=== PATIENT | male | born 1980 | race Caucasian/White ===

== ENCOUNTER 2016-10-25 18:31 | Emergency (ER) | payer SELFPAY ==
[~2016-10-25] VITALS: Ht 172.7 cm; Wt 77.0 kg
[~2016-10-25 18:31] MED LIST: VENTAER INH
[2016-10-25 18:32] VITALS: BP 129/77; PULSE 98; RESP 17; TEMP 98.2; O2SAT 98
--- NOTE | 2016-10-25 18:46 | PD ---
Physical Exam Time Seen by Provider: 18:43 Narrative 36yo M c/o chest and nasal congestion [id number]. Reports SOB. Denies chest pain. Hx of asthma and using inhaler w/ minimal improvement. Reports wheezing, but not now. Denies fever, vomiting. Patient stable. Patient seen in triage. Awaiting bed placement. Data Data Last Documented VS Vital Signs Date Time Temp Pulse Resp B/P Pulse Ox O2 Delivery O2 Flow Rate FiO2 10/25/16 18:32 98.2 98 17 129/77 98 MDM Supervised Visit with ARJUN: Iliana Sagastume Oct 25, 2016 18:46
--- NOTE | 2016-10-25 18:48 | PD ---
HPI . sinus pressure/congestion for few weeks Chief Complaint: Cold / Flu Symptoms Time Seen by Provider: 18:47 Travel History International Travel<30 days: No Contact w/Intl Traveler<30days: No Traveled to known affect area: No History of Present Illness HPI 36-year-old male here with complaints of sinus pressure and chest congestion for the past several weeks. Patient says that he's had sinus pressure and chest congestion for the past 3 weeks. He does have a history of asthma and has been using his inhaler without any relief. He denies any fever or chills. He has no other complaints. PFSH Past Medical History Asthma: Yes Blood Disorders: No Anxiety: Yes Depression: Yes Cancer: No Cardiovascular Problems: No Diminished Hearing: No Endocrine: No Gastrointestinal Disorders: No Genitourinary: No Immune Disorder: No Implanted Vascular Access Dvce: No Musculoskeletal: Yes (CHRONIC BACK PAIN) Neurologic: No Psychiatric: Yes Reproductive: No Respiratory: Yes (ASTHMA) Immunizations Current: No PNEUMOCCOCAL Vaccine (Year): 2 Social History Alcohol Use: Yes (soc) Tobacco Use: Yes (VAP) Substance Use: Yes (BENZOIDS, OPIATES per the medical record) Allergies-Medications (Allergen,Severity, Reaction): Coded Allergies: Penicillin (Verified Allergy, Severe, hives, 10/25/16) Bactrim (Verified Allergy, Intermediate, RASH, 10/25/16) Doxycycline (Verified Allergy, Intermediate, RASH, 10/25/16) Reported Meds & Prescriptions Reported Meds & Active Scripts Active Prednisone 50 Mg Tab 50 Mg PO DAILY Zithromax Z-Pepe (Azithromycin) 250 Mg Dspk 250 Mg PO DIRECTED 500 MG (2 tabs) day 1, then 1 tab days 2-5. Reported Ventolin Hfa 18 GM Inh (Albuterol Sulfate) 90 Mcg/Act Aer 2 Puff INH Q4-6H PRN Review of Systems General / Constitutional: No: Fever Eyes: No: Visual changes HENT: Positive: Congestion, No: Headaches Cardiovascular: No: Chest Pain or Discomfort Respiratory: Positive: Cough, No: Shortness of Breath Gastrointestinal: No: Abdominal Pain Genitourinary: No: Dysuria Musculoskeletal: No: Pain Skin: No Rash Neurologic: No: Weakness Psychiatric: No: Depression Endocrine: No: Polydipsia Hematologic/Lymphatic: No: Easy Bruising Physical Exam Narrative GENERAL: AAO x 3, no acute distress, Well-nourished, well-developed patient. SKIN: Warm and dry. No visible rashes or bruising. HEAD: Normocephalic and atraumatic. EYES: No scleral icterus. No injection or drainage. ENT: No nasal drainage noted. Mucous membranes pink. Airway patent. Maxillary sinus tenderness, TMs with air bubbles. No posterior pharynx erythema, edema or exudate. NECK: Supple, trachea midline. No JVD. No lymphadenopathy. CARDIOVASCULAR: Regular rate and rhythm without murmurs, gallops, or rubs. RESPIRATORY: Breath sounds equal bilaterally. No accessory muscle use. No rhonchi or rales. No audible wheezing. Dry cough heard throughout examination GASTROINTESTINAL: Normal visual inspection EXTREMITIES: No cyanosis or edema. BACK: Nontender without obvious deformity. No CVA tenderness. PSYCH: AAO x 3, normal affect. Data Data Last Documented VS Vital Signs Date Time Temp Pulse Resp B/P Pulse Ox O2 Delivery O2 Flow Rate FiO2 10/25/16 18:32 98.2 98 17 129/77 98 MDM Medical Decision Making Medical Screen Exam Complete: Yes Emergency Medical Condition: Yes Medical Record Reviewed: Yes Differential Diagnosis sinusitis, bronchitis, less likely PNA Narrative Course 36-year-old male here with complaints of sinus pressure and chest congestion for the past several weeks. Patient says that he's had sinus pressure and chest congestion for the past 3 weeks. He does have a history of asthma and has been using his inhaler without any relief. He denies any fever or chills. He has no other complaints. Patient seen and examined. He appears to have a sinusitis and bronchitis. My index of suspicion for pneumonia is low. I recommend a Z-Pepe and prednisone burst. I've advised him that the cough can linger for 6-8 weeks. He can continue to use his inhaler when necessary. Follow-up with primary care provider. Patient verbalized understanding of instructions, questions were answered, and thanked me for their care. I advised them if their condition worsens, please return to the nearest emergency room for further care. Diagnosis Primary Impression: Acute sinusitis Qualified Code: J01.00 - Acute maxillary sinusitis, recurrence not specified Additional Impression: Acute bronchitis Qualified Code: J20.9 - Acute bronchitis, unspecified organism Patient Instructions: General Instructions Additional Instructions: As we discussed the cough can last 6-8 weeks. Take medications as prescribed. If you are a smoker, try to quit. Follow up with your primary care provider. If you develop sudden onset or worsening of shortness or breath, please go to the nearest emergency room. Please return to emergency department if your symptoms return or worsen. Follow up with your primary care provider. Take medications as prescribed. Med/Other Pt SpecificInfo: Prescription(s) given Scripts Prednisone 50 Mg Tab50 Mg PO DAILY #5 TAB Prov:Marita Saha DO 10/25/16 Azithromycin (Zithromax Z-Pepe)250 Mg [id number] Mg PO DIRECTED #1 DSPK Ref 0 500 MG (2 tabs) day 1, then 1 tab days 2-5. Prov:Marita Saha DO 10/25/16 Disposition: 01 DISCHARGE HOME Condition: Stable Kate Arambula Oct 25, 2016 18:48
[2016-10-25] MEDS ORDERED: ZITHTAB PO (18:49)
[2016-10-25] MEDS ORDERED: PRED50 PO (18:53)
== END 2016-10-25 19:39 | disposition home or self-care (01) ==
LOC: NEPK 18:31
DX: J01.90 Acute sinusitis, unspecified (principal); J20.9 Acute bronchitis, unspecified; J45.909 Unspecified asthma, uncomplicated; G89.29 Other chronic pain; M54.9 Dorsalgia, unspecified; Z72.0 Tobacco use
CPT/HCPCS: 99283

== ENCOUNTER 2016-11-07 22:36 | Emergency (ER) | payer SELFPAY ==
[~2016-11-07] VITALS: Ht 172.7 cm; Wt 77.3 kg
[~2016-11-07 22:36] MED LIST changes: +PRED50 PO; +ZITHTAB PO
[2016-11-07] MEDS ORDERED: SODIUM CHLOR 0.9% 1000 ML INJ 1,000 ML IV ONE (22:45)
--- NOTE | 2016-11-07 22:45 | PD ---
HPI Chief Complaint: overdose Time Seen by Provider: 22:40 Travel History International Travel<30 days: No Contact w/Intl Traveler<30days: No Traveled to known affect area: No History of Present Illness HPI 36-year-old male brought in by ambulance as a possible heroin overdose. The patient was found unresponsive in a car at a gas station. He was breathing between 8-12 breaths per minute and was unresponsive. EMS started to use BVM to assist his breathing and administered a total of 2.4 mg of Narcan. Patient' s GCS went from a 3-15. He admits to injecting heroin. Denies any other drugs. Denies any physical complaints other than feeling cold. He is denying suicidal or homicidal ideation. PFSH Past Medical History Asthma: Yes Blood Disorders: No Anxiety: Yes Depression: Yes Cancer: No Cardiovascular Problems: No Diminished Hearing: No Endocrine: No Gastrointestinal Disorders: No Genitourinary: No Immune Disorder: No Implanted Vascular Access Dvce: No Musculoskeletal: Yes (CHRONIC BACK PAIN) Neurologic: No Psychiatric: Yes Reproductive: No Respiratory: Yes (ASTHMA) Immunizations Current: No PNEUMOCCOCAL Vaccine (Year): 2 Social History Alcohol Use: Yes (soc) Tobacco Use: Yes (VAP) Substance Use: Yes (BENZOIDS, OPIATES per the medical record) Allergies-Medications (Allergen,Severity, Reaction): Coded Allergies: Penicillin (Verified Allergy, Severe, hives, 10/25/16) Bactrim (Verified Allergy, Intermediate, RASH, 10/25/16) Doxycycline (Verified Allergy, Intermediate, RASH, 10/25/16) Reported Meds & Prescriptions Reported Meds & Active Scripts Active Prednisone 50 Mg Tab 50 Mg PO DAILY Zithromax Z-Pepe (Azithromycin) 250 Mg Dspk 250 Mg PO DIRECTED 500 MG (2 tabs) day 1, then 1 tab days 2-5. Reported Ventolin Hfa 18 GM Inh (Albuterol Sulfate) 90 Mcg/Act Aer 2 Puff INH Q4-6H PRN Review of Systems Except as stated in HPI: all other systems reviewed are Neg Physical Exam Narrative GENERAL: Well-developed, well-nourished, awake, alert, no apparent distress. SKIN: Focused skin assessment warm/dry. Tattoos throughout body. Piloerection. HEAD: Atraumatic. Normocephalic. EYES: Pupils equal and round. No scleral icterus. No injection or drainage. ENT: Mucous membranes pink and moist. NECK: Trachea midline. No JVD. CARDIOVASCULAR: Tachycardic, rate 112, regular. RESPIRATORY: No accessory muscle use. Clear to auscultation. Breath sounds equal bilaterally. GASTROINTESTINAL: Abdomen soft, non-tender, nondistended. MUSCULOSKELETAL: No obvious deformities. No clubbing. No cyanosis. No edema. NEUROLOGICAL: Awake and alert. No obvious cranial nerve deficits. Motor grossly within normal limits. Normal speech. PSYCHIATRIC: Appropriate mood and affect; insight and judgment normal. Data Data Orders Ns (Bolus) Inj (11/07/16 22:45) MDM Medical Decision Making Medical Screen Exam Complete: Yes Emergency Medical Condition: Yes Medical Record Reviewed: Yes Differential Diagnosis Opioid overdose, congestion Narrative Course This is a 36-year-old male who was brought in by ambulance initially found unresponsive, however had significant improvement in mental status after receiving Narcan. Patient admits to injecting heroin. He denies any other drugs. He denies suicidal or homicidal ideation and denies intentionally overdosing. He will be observed in the emergency department and will likely be discharged should his mental status remained the same. Diagnosis Primary Impression: Accidental heroin overdose Qualified Code: T40.1X1A - Accidental heroin overdose, initial encounter Referrals: Primary Care Physician 2 days Disposition: DISCHARGE HOME Condition: Stable Joey Cabrera MD November 07, 2016 22:44
[2016-11-07 22:55] VITALS: BP 135/88; PULSE 110; RESP 22; TEMP 98.4; O2SAT 97
[2016-11-07 23:09] VITALS: BP 135/88; PULSE 110; RESP 20; TEMP 98.4; O2SAT 97
[2016-11-08 00:52] VITALS: PULSE 92; RESP 16; O2SAT 99
== END 2016-11-08 09:10 | disposition home or self-care (01) ==
LOC: NEPC 22:36
DX: T40.1X1A Poisoning by heroin, accidental (unintentional), initial encounter (principal)
CPT/HCPCS: 96360; 96361; 99284; J7030

== ENCOUNTER 2016-11-15 11:07 | Emergency (ER) | payer SELFPAY ==
[~2016-11-15] VITALS: Ht 170.2 cm; Wt 77.0 kg
[2016-11-15 11:12] VITALS: BP 142/88; PULSE 96; RESP 20; TEMP 97.8; O2SAT 97
--- NOTE | 2016-11-15 11:27 | PD ---
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 Patient states that the cleats of his shoes came loose and he swung approximately 15 feet, striking the trunk of the tree with his back and the posterior left side of his head. He endorses momentary loss of consciousness, but states that he was able to lower himself to the ground and walk to his work truck. On presentation he complains of 8/10 upper/mid back pain, left shoulder pain, and dull headache. He denies dizziness , vision changes, chest pain, palpitations, shortness of breath, nausea, vomiting, dysuria, hematuria, numbness, tingling, weakness, limitations to range of motion of the extremities. He states that he took 2 ibuprofen just after the accident with no improvement of symptoms. Patient states that he does not want to receive narcotic pain medications. PFSH Past Medical History Asthma: Yes Blood Disorders: No Anxiety: Yes Depression: Yes Cancer: No Cardiovascular Problems: No Diminished Hearing: No Endocrine: No Gastrointestinal Disorders: No Genitourinary: No Immune Disorder: No Implanted Vascular Access Dvce: No Musculoskeletal: Yes (CHRONIC BACK PAIN) Neurologic: No Psychiatric: Yes Reproductive: No Respiratory: Yes (ASTHMA) Immunizations Current: No PNEUMOCCOCAL Vaccine (Year): 2 Social History Alcohol Use: Yes (soc) Tobacco Use: Yes (1ppd) Substance Use: Yes (BENZOIDS, OPIATES, heroine 11/07/16) Allergies-Medications (Allergen,Severity, Reaction): Coded Allergies: Penicillin (Verified Allergy, Severe, hives, 11/15/16) Bactrim (Verified Allergy, Intermediate, RASH, 11/15/16) Doxycycline (Verified Allergy, Intermediate, RASH, 11/15/16) Reported Meds & Prescriptions Reported Meds & Active Scripts Active Flexeril (Cyclobenzaprine HCl) 10 Mg Tab 10 Mg PO TID Ibuprofen 800 Mg Tab 800 Mg PO TID Reported Ventolin Hfa 18 GM Inh (Albuterol Sulfate) 90 Mcg/Act Aer 2 Puff INH Q4-6H PRN Review of Systems Except as stated in HPI: all other systems reviewed are Neg Physical Exam Narrative GENERAL: Well-nourished, well-developed white male in no acute distress. Sitting up in the stretcher, wearing a c-collar. SKIN: Warm and dry. Multiple tattoos. Linear contusion/ecchymosis spanning the width of the upper back. There are several superficial abrasions of the upper extremities. Thorough evaluation reveals no other edema, ecchymosis, abrasion, or laceration of the skin. HEAD: Normocephalic. Atraumatic. No raccoon eyes or barker sign. No tenderness to palpation of the skull or facial bones. No bony step-offs. No malocclusion of the teeth. EYES: No scleral icterus. No injection or drainage. PERRLA. EOMI. ENT: Pearly briseno tympanic membranes bilaterally. Nasal mucosa is moist. Oropharynx without erythema, edema or exudate. NECK: Supple, trachea midline. No JVD or lymphadenopathy. No midline tenderness to palpation. Patient retains full, active, painless range of motion of the neck. C-collar removed. CARDIOVASCULAR: Regular rate and rhythm without murmurs, gallops, or rubs. 2+ DP and radial pulses bilaterally. RESPIRATORY: Breath sounds clear and equal bilaterally. No accessory muscle use. GASTROINTESTINAL: Abdomen soft, non-tender, nondistended. + Bowel sounds MUSCULOSKELETAL: No cyanosis, or edema. + TTP of the posterior aspect of the LEFT shoulder. NO limitations to ROM. No tenderness to palpation or limitations to range of motion of the remaining joints of the upper and lower extremities bilaterally. NEUROLOGICAL: Awake and alert. Cranial nerves II through XII intact. Motor and sensory grossly within normal limits. 5/5 muscle strength in all muscle groups. Normal speech. BACK: No obvious deformity. No CVA tenderness. No midline tenderness. Data Data Last Documented VS Vital Signs Date Time Temp Pulse Resp B/P Pulse Ox O2 Delivery O2 Flow Rate FiO2 11/15/16 13:55 18 11/15/16 11:12 97.8 96 142/88 97 Room Air Orders Ketorolac Inj (Toradol Inj) (11/15/16 11:45) Orphenadrine Inj (Norflex Inj) (11/15/16 11:45) Sodium Chlor 0.9% 1000 Ml Inj (Ns 1000 M (11/15/16 11:45) Shoulder, Complete (>2vws) (11/15/16 11:37) Chest, Single Ap (11/15/16 11:37) Collar [place] (11/15/16 ) Tetanus/Diphtheria Tox Adult (Tetanus/Di (11/15/16 13:00) MDM Medical Decision Making Medical Screen Exam Complete: Yes Emergency Medical Condition: Yes Differential Diagnosis contusion versus abrasion versus musculoskeletal pain versus cephalgia versus fracture versus other Narrative Course 36 year old male with PMH of asthma, chronic back pain, anxiety, depression, polysubstance abuse presents to the ED via 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 Patient states that the cleats of his shoes came loose and he swung approximately 15 feet, striking the trunk of the tree with his back and the posterior left side of his head. He endorses momentary loss of consciousness, but states that he was able to lower himself to the ground and walk to his work truck. On presentation he complains of 8/10 upper/mid back pain, left shoulder pain, and dull headache. He denies dizziness , vision changes, chest pain, palpitations, shortness of breath, nausea, vomiting, dysuria, hematuria, numbness, tingling, weakness, limitations to range of motion of the extremities. Vitals reviewed. Physical exam reveals an alert white male, sitting upright in a stretcher, wearing a c-collar. No focal neural deficit. No midline tenderness of the neck or back. Large abrasion/ contusion spanning the upper back. Some tenderness to palpation of the posterior left shoulder and left sided rib cage, otherwise unremarkable. C- collar was removed. The need for imaging of the C-spine membrane was ruled out by a [employer] CT rules. Patient was administered 1 L normal saline, 30 mg Toradol IV and IM Norflex. She status immunization was updated. Chest x-ray and shoulder x-ray with no signs of acute injury per radiology read. On recheck the patient reports improvement of his headache and pain symptoms. This is musculoskeletal pain secondary to fall. He is prescribed a short course of anti-inflammatories and muscle relaxants. He was cautioned not to drive while taking muscle relaxants. Patient was instructed to return to normal , gentle activities as tolerated, take medication as prescribed, follow up with the primary care provider. He was provided a note of excuse from work for the next 2 days. He indicated understanding of instructions and is agreeable to the care plan. The patient is stable and discharged home. Diagnosis Primary Impression: Musculoskeletal back pain Additional Impressions: Abrasion Immunization, tetanus toxoid Contusion, back Qualified Code: S20.229A - Contusion, back, unspecified laterality, initial encounter Referrals: Primary Care Physician Patient Instructions: Contusion in Adults (ED), General Instructions, Musculoskeletal Pain (ED) Departure Forms: Tests/Procedures, Work Release Enter return to work date: November 19, 2016 Special Instructions: No restricitions. Additional Instructions: Rest, hydrate. Resume normal , gentle activities as tolerated. No strenuous physical activities for the next few days A her milligram ibuprofen up to 3 times a day to reduce pain and inflammation. Flexeril as needed for muscle spasm. Do not drive while taking muscle relaxants. Applying ice or heat to areas with sore muscles may help to improve your patient. Do not apply ice/ heat for longer than 20 m/h. Follow-up with your primary care provider in 2 weeks. Return to the ED for any urgent or emergent medical condition. Med/Other Pt SpecificInfo: Prescription(s) given Scripts Cyclobenzaprine (Flexeril)10 Mg Tab10 Mg PO TID #15 TAB Ref 0 Prov:Zohra Yee MD 11/15/16 Ibuprofen 800 Mg [id number] Mg PO TID #21 TAB Ref 0 Prov:Zohra Yee MD 11/15/16 Disposition: 01 DISCHARGE HOME Condition: Stable Maryam Morris November 15, 2016 11:27
[2016-11-15] MEDS ORDERED: ORPHENADRINE INJ 60 MG/2 ML AMP IM ONE (11:45)
[2016-11-15] MEDS ORDERED: SODIUM CHLOR 0.9% 1000 ML INJ 1,000 ML IV ONE (11:45)
[2016-11-15] MEDS ORDERED: KETOROLAC TROMETHAMINE 30 MG/ML (IVP) VIAL IV PUSH ONE (11:45)
--- NOTE | 2016-11-15 12:07 | RADRPT ---
EXAM DATE/TIME: 11/15/2016 12:01 [facility] COMPARISON: No previous studies available for comparison. INDICATIONS : Chest pain after falling out of a tree today. MEDICAL HISTORY : Smoker. SURGICAL HISTORY : None. ENCOUNTER: Initial ACUITY: 1 day PAIN SCORE: 8/10 LOCATION: Bilateral chest FINDINGS: A single view of the chest demonstrates the lungs to be symmetrically aerated without evidence of mas s, infiltrate or effusion. The cardiomediastinal contours are unremarkable. Osseous structures are intact. CONCLUSION: No acute disease. Louie Myers MD on November 15, 2016 at 12:05 Board Certified Radiologist. This report was verified electronically.
--- NOTE | 2016-11-15 12:10 | RADRPT ---
EXAM DATE/TIME: 11/15/2016 12:03 [facility] COMPARISON: No previous studies available for comparison. INDICATIONS : Left shoulder pain after falling out of a tree. MEDICAL HISTORY : None. SURGICAL HISTORY : None. ENCOUNTER: Initial ACUITY: 1 day PAIN SCORE: 8/10 LOCATION: Left shoulder. FINDINGS: Multiple view examination of the left shoulder demonstrates no evidence of fracture or dislocation. The glenohumeral and acromioclavicular joints are maintained. There is resorption of distal clavicle likely posttraumatic. There is normal range of motion between internal and external rotation. Bony m ineralization is normal. CONCLUSION: 1. Resorption distal clavicle likely posttraumatic. 2. No acute abnormalities. Cuong Randhawa MD on November 15, 2016 at 12:06 Board Certified Radiologist. This report was verified electronically.
[2016-11-15] MEDS ORDERED: TETANUS/DIPHTHERIA TOXOID ADULT 0.5 ML VIAL IM ONE (13:00)
[2016-11-15] MEDS ORDERED: CYCL1TAB29 PO (13:00)
[2016-11-15] MEDS ORDERED: IBUP800T23 PO (13:00)
[2016-11-15 13:55] VITALS: RESP 18
== END 2016-11-15 14:31 | disposition home or self-care (01) ==
LOC: NEPC 11:07
DX: M54.9 Dorsalgia, unspecified (principal); S20.229A Contusion of unspecified back wall of thorax, initial encounter; M25.512 Pain in left shoulder; J45.909 Unspecified asthma, uncomplicated; F17.210 Nicotine dependence, cigarettes, uncomplicated; F11.10 Opioid abuse, uncomplicated; W14.XXXA Fall from tree, initial encounter; Y93.H9 Activity, other involving exterior property and land maintenance, building and construction; Y99.0 Civilian activity done for income or pay; Z23 Encounter for immunization
CPT/HCPCS: 71010; 73030; 90471; 90714; 96361; 96372; 96374; 99284; J1885; J2360; J7030; L0150

== ENCOUNTER 2016-12-26 14:16 | Emergency (ER) | payer SELFPAY ==
[~2016-12-26 14:16] MED LIST changes: +CYCL1TAB29 PO; +IBUP800T23 PO; -PRED50 PO; -ZITHTAB PO
[2016-12-26 14:19] VITALS: BP 135/77; PULSE 105; RESP 16; TEMP 98.1; O2SAT 96
--- NOTE | 2016-12-26 14:27 | PD ---
Physical Exam Date Seen by Provider: Dec 26, 2016 Time Seen by Provider: 14:22 Data Data Last Documented VS Vital Signs Date Time Temp Pulse Resp B/P Pulse Ox O2 Delivery O2 Flow Rate FiO2 12/26/16 14:19 98.1 105 16 135/77 96 MDM Supervised Visit with ARJUN: No Narrative Course 36 YO M with complaint of nausea, dizziness and headache after being hit in the head by a falling tree branch ~ 1 hour before presentation. + LOC x "8 minutes." + repetitive questioning en route. Alert, oriented, no focal neuro deficits on limited exam in triage. Vitals reviewed. Seen in triage, awaiting bed placement. Maryam Morris Dec 26, 2016 14:27
--- NOTE | 2016-12-26 14:40 | PD ---
HPI Chief Complaint: Head Injury Time Seen by Provider: 14:36 Travel History International Travel<30 days: No Contact w/Intl Traveler<30days: No Traveled to known affect area: No History of Present Illness HPI 36-year-old male presents to the emergency department for evaluation after head injury that occurred approximately 1-1.5 hours ago. Patient states that he was cutting down a tree and harness. The tree snapped back and hit him in the head. He had positive loss of consciousness for prostate minutes according to his friend at bedside. He was in a harness and did not fall. He was lower down by his friend. He apparently had repetitive questioning after the injury. He does have a small laceration above the left eye with swelling noted to the orbit. Patient states his tetanus immunization was less than 5 years ago. He denies any neck pain or back pain. No chest pain or abdominal pain. No vomiting. He has been ambulatory since the accident. He denies any pelvic or hip pain. 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 Patient reports no other medical problems. He takes no prescribed medications. He does state that he cannot have any narcotic medications due to being a previous drug user. 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 Afebrile. Patient is alert and oriented to person, place, time. SKIN: Focused skin assessment warm/dry. Patient has a small 2 cm laceration above the left eye orbit with swelling noted. Patient is approximately 3 cm area of erythema with mild induration to the right abdomen. No fluctuance or abscess formation noted. HEAD: Normocephalic. ENT: Mucosa pink and moist. No erythema or exudates. No uvular edema. No uvular , palatal, or tonsillar deviation. Airway patent. Nasal turbinates appear normal without nasal blood, purulent drainage or septal hematoma. Bilateral tympanic membranes are clear without erythema or perforation. EYES: No scleral icterus. No injection or drainage. PERRLA. NECK: Supple, trachea midline. No JVD or lymphadenopathy. CARDIOVASCULAR: Regular rate and rhythm without murmurs, gallops, or rubs. RESPIRATORY: Breath sounds equal bilaterally. No accessory muscle use. Lungs sounds are clear to auscultation. GASTROINTESTINAL: Abdomen soft, non-tender, nondistended. MUSCULOSKELETAL: No cyanosis, or edema. No bony point tenderness. BACK: Nontender without obvious deformity. No CVA tenderness. Data Data Last Documented VS Vital Signs Date Time Temp Pulse Resp B/P Pulse Ox O2 Delivery O2 Flow Rate FiO2 12/26/16 17:26 84 18 136/82 98 Room Air 12/26/16 14:19 98.1 Orders Apply Cervical Collar (12/26/16 14:35) Ct Cerv Spine W/O Contrast (12/26/16 ) Ct Facial Bones W/O Iv Cont (12/26/16 ) Ct Brain W/O Iv Contrast(Rout) (12/26/16 ) Collar [place] (12/26/16 ) Ketorolac Inj (Toradol Inj) (12/26/16 17:30) MDM Medical Decision Making Medical Screen Exam Complete: Yes Emergency Medical Condition: Yes Medical Record Reviewed: Yes Interpretation(s) CT head CONCLUSION: No acute intracranial disease. There is mild sinus disease. CT cervical spine CONCLUSION: 1. No acute abnormality seen. 2. Minimal chronic change at the C4-C5 and C5-C6 levels. CT facial bones - CONCLUSION: 1. No fracture is seen. 2. Sinus disease. Differential Diagnosis Intracranial hemorrhage versus skull fracture versus closed head injury versus concussion versus facial contusion versus facial fracture versus laceration versus cervical spine injury versus cervical strain versus cellulitis Narrative Course 36-year-old male presents to the emergency department for evaluation after head injury that occurred just prior to arrival. C-collar is applied. CT of the brain, cervical spine, facial bones are ordered and pending. CT of the cervical spine is done due to mechanism of injury. CT of the brain no acute intracranial disease. There is mild sinus disease. CT of the facial bones shows no fracture. CT of the cervical spine shows no acute abnormality. Patient is given internal 60 mg IM for pain. He'll be discharged prescription for ibuprofen and clindamycin for cellulitis. He verbalizes agreement and understanding. Laceration was repaired with Dermabond. He is given instructions on this. Procedures Procedure Narrative LACERATION LOCATION: Left eyebrow LENGTH: 2 cm NUMBER OF STITCHES/ROBERT: Dermabond REPAIR: The area of the laceration was prepped with Betadine and sterilely draped. \The wound was copiously irrigated and explored without evidence of foreign body, tendon injury or neurovascular injury. The wound was closed using Dermabond. This was a single layer repair. A sterile dressing was applied. The patient was advised to keep the dressing clean and dry. Patient tolerated the procedure well. Diagnosis Primary Impression: Closed head injury Qualified Code: S09.90XA - Closed head injury, initial encounter Additional Impressions: Facial laceration Qualified Code: S01.81XA - Facial laceration, initial encounter Cellulitis Qualified Code: L03.311 - Cellulitis of abdominal wall Referrals: Primary Care Physician call for appointment Patient Instructions: Facial Laceration (ED), General Instructions, Head Injury (ED) Departure Forms: Tests/Procedures, Work Release Enter return to work date: Dec 28, 2016 Additional Instructions: Do not pick at skin glue. Do not apply creams or lotions to skin glue. Do not soak single. It will come off on its own. Take ibuprofen as instructed as needed for pain. Take clindamycin as directed until gone. Follow-up with your primary care physician. Return to the emergency department for any acute worsening of symptoms. Med/Other Pt SpecificInfo: Prescription(s) given Scripts Clindamycin 150 Mg [id number] Mg PO Q6H 7 Days Ref 0 Prov:Nickie Carrasquillo 12/26/16 Ibuprofen 800 Mg [id number] Mg PO TID #21 TAB Ref 0 Prov:Nickie Carrasquillo 12/26/16 Disposition: 01 DISCHARGE HOME Condition: Stable Nickie Carrasquillo Dec 26, 2016 14:40
--- NOTE | 2016-12-26 16:51 | RADRPT ---
EXAM DATE/TIME: 12/26/2016 16:11 [facility] COMPARISON: No previous studies available for comparison. INDICATIONS : Head injury to face. RADIATION DOSE: 56.35 CTDIvol (mGy) MEDICAL HISTORY : None SURGICAL HISTORY : None. ENCOUNTER: Initial ACUITY: 1 day PAIN SCALE: 6/10 LOCATION: Left cranial TECHNIQUE: Multiple contiguous axial images were obtained of the head. Using automated exposure control and adj ustment of the mA and/or kV according to patient size, radiation dose was kept as low as reasonably a chievable to obtain optimal diagnostic quality images. FINDINGS: CEREBRUM: The ventricles are normal for age. No evidence of midline shift, mass lesion, hemorrhage or acute in farction. No extra-axial fluid collections are seen. POSTERIOR FOSSA: The cerebellum and brainstem are intact. The 4th ventricle is midline. The cerebellopontine angle i s unremarkable. EXTRACRANIAL: The visualized portion of the orbits is intact. There is minimal mucosal thickening at the maxillary sinus. SKULL: The calvaria is intact. No evidence of skull fracture. CONCLUSION: No acute intracranial disease. There is mild sinus disease. Collins Dixon MD on December 26, 2016 at 16:48 Board Certified Radiologist. This report was verified electronically.
--- NOTE | 2016-12-26 16:54 | RADRPT ---
EXAM DATE/TIME: 12/26/2016 16:10 [facility] COMPARISON: No previous studies available for comparison. INDICATIONS : Neck pain due to fall. RADIATION DOSE: 21.76 CTDIvol (mGy) MEDICAL HISTORY : None SURGICAL HISTORY : None. ENCOUNTER: Initial ACUITY: 1 day PAIN SCALE: 6/10 LOCATION: Left neck region. TECHNIQUE: Volumetric scanning of the cervical spine was performed. Multiplanar reconstructions in the sagittal, coronal and oblique axial planes were performed. Using automated exposure control and adjustment o f the mA and/or kV according to patient size, radiation dose was kept as low as reasonably achievable to obtain optimal diagnostic quality images. FINDINGS: VERTEBRAE: Normal vertebral body height. ALIGNMENT: No evidence of subluxation. C2-C3: The bony spinal canal is normal in size. No evidence of disc bulge or herniation. The neural forami na are bilaterally patent. C3-C4: The bony spinal canal is normal in size. No evidence of disc bulge or herniation. The neural forami na are bilaterally patent. C4-C5: There is minimal posterior osteophytic ridging and disc bulge. Significant stenosis is not present. T he bony spinal canal is normal in size. The neural foramina are bilaterally patent. C5-C6: There is minimal right lateral recess posterior osteophytic ridging. The bony spinal canal is normal in size. No evidence of disc bulge or herniation. The neural foramina are bilaterally patent. C6-C7: The bony spinal canal is normal in size. No evidence of disc bulge or herniation. The neural forami na are bilaterally patent. C7-T1: The bony spinal canal is normal in size. No evidence of disc bulge or herniation. The neural forami na are bilaterally patent. CONCLUSION: 1. No acute abnormality seen. 2. Minimal chronic change at the C4-C5 and C5-C6 levels. Collins Dixon MD on December 26, 2016 at 16:49 Board Certified Radiologist. This report was verified electronically.
--- NOTE | 2016-12-26 16:58 | RADRPT ---
EXAM DATE/TIME: 12/26/2016 16:14 [facility] COMPARISON: No previous studies available for comparison. INDICATIONS : Neck pain due to fall. RADIATION DOSE: 21.96 CTDIvol (mGy) MEDICAL HISTORY : None SURGICAL HISTORY : None. ENCOUNTER: Initial ACUITY: 1 day PAIN SCORE: 6/10 LOCATION: Left upper eyebrow region. TECHNIQUE: Volumetric scanning of the facial bones was performed. Using automated exposure control and adjustme nt of the mA and/or kV according to patient size, radiation dose was kept as low as reasonably achiev able to obtain optimal diagnostic quality images. FINDINGS: ORBITS: The orbital and infraorbital osseous structures are intact. The retroconal structures have a normal configuration. No radiopaque foreign bodies are seen. NASAL BONE: The nasal bone and maxillary spine are intact ZYGOMATIC ARCHES: Symmetric without evidence of fracture. SINUSES: There is mild bilateral maxillary and inferior medial right frontal sinus disease. The ethmoid, sphen oid, and left frontal sinuses are clear. NASAL CAVITY: The nasal septum is intact and midline. The lacrimal ducts are intact. SOFT TISSUES: No radiopaque foreign bodies seen. No soft-tissue swelling is seen. INTRACRANIAL: No intracranial air seen. CRIBIFORM PLATE: Grossly intact. CONCLUSION: 1. No fracture is seen. 2. Sinus disease. Collins Dixon MD on December 26, 2016 at 16:53 Board Certified Radiologist. This report was verified electronically.
[2016-12-26 17:26] VITALS: BP 136/82; PULSE 84; RESP 18; O2SAT 98
[2016-12-26] MEDS ORDERED: KETOROLAC TROMETHAMINE 60 MG/2 ML (IM) VIAL IM ONE (17:30)
[2016-12-26] MEDS ORDERED: CLIN1CAP5 PO (17:43)
[2016-12-26] MEDS ORDERED: IBUP800T23 PO (17:43)
== END 2016-12-26 18:03 | disposition home or self-care (01) ==
LOC: NEPD 14:16
DX: S01.112A Laceration without foreign body of left eyelid and periocular area, initial encounter (principal); S09.90XA Unspecified injury of head, initial encounter; L03.311 Cellulitis of abdominal wall; J45.909 Unspecified asthma, uncomplicated; F41.9 Anxiety disorder, unspecified; F32.9 Major depressive disorder, single episode, unspecified; F17.200 Nicotine dependence, unspecified, uncomplicated; W45.8XXA Other foreign body or object entering through skin, initial encounter
CPT/HCPCS: 12011; 70450; 70486; 72125; 96372; 99285; J1885; L0150